=== PATIENT | male | born 1995 | race African-American/Black ===

== ENCOUNTER 2024-10-02 23:09 | Emergency (ER) | payer MEDICAID ==
[~2024-10-02] VITALS: Ht 185.4 cm; Wt 96.9 kg
[~2024-10-02 23:09] MED LIST: METO-292 PO; PROM25TA14 PO
[2024-10-03 00:13] VITALS: BP 101/55; PULSE 91; O2SAT 97
[2024-10-03 01:00] VITALS: RESP 16
[2024-10-03] MEDS ORDERED: NALO4SPR BOTHNARES (01:27)
== END 2024-10-03 01:59 | disposition home or self-care (01) ==
LOC: ER 23:10
DX: T40.411A Poisoning by fentanyl or fentanyl analogs, accidental (unintentional), initial encounter (principal); Y92.89 Other specified places as the place of occurrence of the external cause
CPT/HCPCS: 99284